=== PATIENT | female | born 2000 | race Hispanic/Latino ===

== ENCOUNTER 2025-02-02 14:39 | Outpatient (CLI) | payer OTHER | END 2025-02-02 14:40 | disposition home or self-care (01) | LOC: ULT 14:39 | PROVIDERS: ATTEND Family Medicine | DX: Z34.83 Encounter for supervision of other normal pregnancy, third trimester (principal); Z3A.34 34 weeks gestation of pregnancy | CPT/HCPCS: 76805 ==